=== PATIENT | male | born 2000 | race Caucasian/White ===

== ENCOUNTER 2021-03-28 13:28 | Emergency (ER) | payer SELFPAY ==
[~2021-03-28] VITALS: Ht 182.9 cm; Wt 88.5 kg
[2021-03-28 13:33] VITALS: BP 107/54
[2021-03-28] MEDS ORDERED: KETOROLAC 30 MG/ML VIAL IM ONE (14:55)
[2021-03-28] MEDS ORDERED: METOCLOPRAMIDE 10 MG TAB PO ONE (14:55)
--- NOTE | 2021-03-28 15:06 | NUR ---
PT AMBULATED TO BED 9
--- NOTE | 2021-03-28 15:30 | NUR ---
20 Y/O MALE BIB SELF. PATIENT PRESENTS TO ED WITH C/O BACK PAIN, NAUSEA, AND HEADACHE. PT STATES HE WAS SIPHONINH GAS LAST WEEK AND INHALED FUMES. DENIES N/V/D; SKIN IS PINK/WARM/DRY; AAOX4 WITH EVEN AND STEADY GAIT; LUNGS CLEAR BL; HR EVEN AND REGULAR; PT DENIES ANY FEVER, CP, COUGH AT THIS TIME; PATIENT STATES PAIN OF 8/10 AT THIS TIME; VSS; PATIENT POSITIONED FOR COMFORT; HOB ELEVATED; BEDRAILS UP X1; BED DOWN. ER MD MADE AWARE OF PT STATUS. 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
[2021-03-28] MEDS ORDERED: IBUP-2213 PO (17:44)
[2021-03-28] MEDS ORDERED: ONDA4TAB PO (17:44)
[2021-03-28 18:03] VITALS: BP 120/61
--- NOTE | 2021-03-28 18:04 | NUR ---
Patient discharged with v/s stable. Written and verbal after care instructions ABOUT MUSCLE PAIN AND TENSION HEADACHE given and explained. Patient alert, oriented and verbalized understanding of instructions. Ambulatory with steady gait. All questions addressed prior to discharge. ID band removed. Patient advised to follow up with PMD. Rx of IBUPROFEN AND ZOFRAN given. Patient educated on indication of medication including possible reaction and side effects. Opportunity to ask questions provided and answered.
== END 2021-03-28 18:04 | disposition home or self-care (01) ==
LOC: MED 13:28
DX: R51.9 Headache, unspecified (principal); M54.89 Other dorsalgia; R11.0 Nausea; Z79.899 Other long term (current) drug therapy
CPT/HCPCS: 96372; 99283; J1885; J8597